=== PATIENT | female | born 1965 | race African-American/Black ===

== ENCOUNTER 2021-01-26 17:56 | Emergency (ER) | payer MEDICAID ==
[~2021-01-26] VITALS: Ht 165.1 cm; Wt 91.0 kg
[2021-01-26 18:47] VITALS: BP 109/55
== END 2021-01-27 | disposition left against medical advice (07) ==
LOC: ER 17:56
DX: Z53.21 Procedure and treatment not carried out due to patient leaving prior to being seen by health care provider (principal)
CPT/HCPCS: 93005